=== PATIENT | male | born 1950 | race Caucasian/White ===

== ENCOUNTER 2016-09-27 10:39 | Day surgery (SDC) | payer MEDICARE ==
--- NOTE | ~2016-09-27 | EGD ---
EGD REPORT [facility] [address] [id number] NAME: SAW BRIGHT : [birth year] STATUS : REG [facility] PAT#: [id number] AGE: 65 ADM/REG DATE : 09/27/16 MR#: [id number] REPORT SERV DATE: 09/27/16 DICTATED BY: JAIMEE NOLAN DATE: 09/27/16 REPORT STATUS : Draft TRANSCRIBED BY: [facility] DATE: 09/27/16 [facility] Center Patient Name: Saw Bright Date of : 1950 Attending MD: CRISTAL NOLAN MD Procedure Date No Time: 09/27/2016 Procedure: Colonoscopy Indications: Screening for colorectal malignant neoplasm Referring MD: RADHA SELBY Medicines: See the Anesthesia note for documentation of the administered medications Complications: No immediate complications. Estimated blood loss: None. Procedure: Pre-Anesthesia Assessment: - ASA Grade Assessment: II - A patient with mild systemic disease. - Prior to the procedure, a History and Physical was performed, and patient medications and allergies were reviewed. The patient's tolerance of previous anesthesia was also reviewed. The risks and benefits of the procedure and the sedation options and risks were discussed with the patient. All questions were answered, and informed consent was obtained. Prior Anticoagulants: The patient has taken aspirin and ibuprofen, last doses were 1 day prior to procedure. After reviewing the risks and benefits, the patient was deemed in satisfactory condition to undergo the procedure. After I obtained informed consent, the scope was passed under direct vision. Throughout the procedure, the patient's blood pressure, pulse, and oxygen saturations were monitored continuously. The PCF [id number] was introduced through the anus and advanced to the terminal ileum. The ileocecal valve, appendiceal orifice, terminal ileum and rectum were photographed. The entire colon was examined. The colonoscopy was performed without difficulty. The patient tolerated the procedure well. The quality of the bowel preparation was adequate. Findings: The perianal and digital rectal examinations were normal. The terminal ileum appeared normal. A sessile polyp was found in the distal transverse colon. The polyp was 4 mm in size. The polyp was removed with a cold snare. Resection and retrieval were complete. Multiple small and large-mouthed diverticula were found in the entire colon. EGD REPORT [place] [id number] [place]. [address] NAME: SAW BRIGHT : [birth year] STATUS : REG [facility]#: [id number] AGE: 65 ADM/REG DATE : 09/27/16 MR#: [id number] REPORT SERV DATE: 09/27/16 DICTATED BY: JAIMEE NOLAN DATE: 09/27/16 REPORT STATUS : Draft TRANSCRIBED BY: [facility] DATE: 09/27/16 Non-bleeding internal hemorrhoids were found during retroflexion and were Grade I (internal hemorrhoids that do not prolapse). No other significant abnormalities were identified in a careful examination of the remainder of the colon. Impression: - The examined portion of the ileum was normal. - One 4 mm polyp in the distal transverse colon. Resected and retrieved. - Diverticulosis in the entire examined colon. - Non-bleeding internal hemorrhoids. Recommendation: - Patient has a contact number available for emergencies. The signs and symptoms of potential delayed complications were discussed with the patient. Return to normal activities tomorrow. Written discharge instructions were provided to the patient. - High fiber diet indefinitely. - Discharge patient to home. - Continue present medications. - Await pathology results. - Repeat colonoscopy in 5-10 years for surveillance. Procedure Code(s): --- Professional --- 59096, Colonoscopy, flexible, proximal to splenic flexure; with removal of tumor(s), polyp(s), or other lesion(s) by snare technique Diagnosis Code(s): --- Professional --- K64.0, First degree hemorrhoids K57.30, Diverticulosis of large intestine without perforation or abscess without bleeding D12.3, Benign neoplasm of transverse colon Z12.11, Encounter for screening for malignant neoplasm of colon CPT copyright 2013 [employer]. All rights reserved. The codes documented in this report are preliminary and upon health type technician review may be revised to meet current compliance requirements. CRISTAL NOLAN MD 09/27/2016 1:29 PM This report has been signed electronically. Number of Addenda: 0 EGD REPORT [facility] [address] [id number] NAME: SAW BRIGHT : [birth year] STATUS : REG [facility] PAT#: [id number] AGE: 65 ADM/REG DATE : 09/27/16 MR#: [id number] REPORT SERV DATE: 09/27/16 DICTATED BY: JAIMEE NOLAN DATE: 09/27/16 REPORT STATUS : Draft TRANSCRIBED BY: [facility] DATE: 09/27/16 Note Initiated On: 09/27/2016 12:58 PM Scope Withdrawal Time 0 hours 11 minutes 54 seconds [address] [id number]
[~2016-09-27 10:39] MED LIST: ASA5GR PO; AVAP150 PO; CRESTOR10 PO; EFFIENT10 PO; INDOCIN SR75 MG PO; LIPITOR10 PO; LOP50 PO; NORV25 PO; NORV5 PO; X25 PO; ZANTAC 150 PO
== END 2016-09-27 23:59 | disposition home or self-care (01) ==
LOC: DMU 10:39
PROVIDERS: Internal Medicine Gastroenterology
PROC: 0DBL8ZZ Excision of Transverse Colon, Via Natural or Artificial Opening Endoscopic (ICD-10-PCS; principal; 2016-09-27 12:00)
DX: Z12.11 Encounter for screening for malignant neoplasm of colon (principal); D12.3 Benign neoplasm of transverse colon; K57.30 Diverticulosis of large intestine without perforation or abscess without bleeding; K64.0 First degree hemorrhoids; I10 Essential (primary) hypertension; I25.10 Atherosclerotic heart disease of native coronary artery without angina pectoris; E78.00 Pure hypercholesterolemia, unspecified; K21.9 Gastro-esophageal reflux disease without esophagitis; M19.90 Unspecified osteoarthritis, unspecified site; F41.9 Anxiety disorder, unspecified; Z98.41 Cataract extraction status, right eye; Z98.42 Cataract extraction status, left eye
CPT/HCPCS: 82962; 88305